=== PATIENT | male | born 1965 | race Caucasian/White ===

== ENCOUNTER 2019-07-09 07:18 | Day surgery (SDC) | payer OTHER ==
[2019-07-08 11:58] VITALS: BMI 32.1
[~2019-07-09 07:18] MED LIST: ACETAMINOPHEN 325 MG TABLET (FP) PO PRN; CHONDROITIN SU A/HYALUR SOD 1 KIT IO ONE; EPINEPHrine/PF 1 MG/1 ML (1:1,000) AMPULE SQ ONE; LIDOCAINE HCL 1% PRESERVATIVE FREE - 30ML VIAL IO ONE; TETRACAINE 0.5% OPHTH SOLN 2 ML BOTTLE TP ONE
[2019-07-09] MEDS ORDERED: PHENYLEPHRINE 2.5% OPHTH SOLN 15 ML BOTTLE ONE (07:38)
[2019-07-09] MEDS ORDERED: KETOROLAC TROMETHAMINE 0.5% EYE DROP 1 DROP DROPS ONE (07:38)
[2019-07-09] MEDS ORDERED: TROPICAMIDE 1% OPHTH SOLN 15 ML BOTTLE ONE (07:38)
[2019-07-09] MEDS ORDERED: CYCLOPENTOLATE HCL 1% OPHTH SOLN 2 ML BOTTLE ONE (07:38)
[2019-07-09] MEDS ORDERED: OFLOXACIN 0.3% OPHTHALMIC SOLUTION 5 ML BOTTLE ONE (07:38)
[2019-07-09] MEDS: KETOROLAC TROMETHAMINE 0.5% EYE DROP 1 DROP DROPS OP SCH ×3 (08:30→08:40)
[2019-07-09] MEDS: OFLOXACIN 0.3% OPHTHALMIC SOLUTION 5 ML BOTTLE OP SCH ×3 (08:30→08:40)
[2019-07-09] MEDS: PHENYLEPHRINE 2.5% OPHTH SOLN 15 ML BOTTLE OP SCH ×3 (08:30→08:40)
[2019-07-09] MEDS: CYCLOPENTOLATE HCL 1% OPHTH SOLN 2 ML BOTTLE OP SCH ×3 (08:30→08:40)
[2019-07-09] MEDS: TROPICAMIDE 1% OPHTH SOLN 15 ML BOTTLE OP SCH ×3 (08:30→08:40)
[2019-07-09] MEDS ORDERED: MIDAZOLAM HCL 2 MG/2 ML SINGLE DOSE VIAL ONE (08:38)
[2019-07-09] MEDS ORDERED: PROPOFOL 20 ML ONE (08:38)
[2019-07-09] MEDS ORDERED: BUPIVACAINE HCL/PF 0.75% 10 ML VIAL ONE (08:58)
[2019-07-09] MEDS ORDERED: LIDOCAINE HCL 2% 100 MG/5 ML DISP.SYRIN ONE (08:58)
[2019-07-09] MEDS ORDERED: TETRACAINE 0.5% OPHTH SOLN 2 ML BOTTLE TP ONE (09:10)
[2019-07-09] MEDS ORDERED: LIDOCAINE HCL 1% PRESERVATIVE FREE - 30ML VIAL IO ONE (09:23)
[2019-07-09] MEDS ORDERED: CHONDROITIN SU A/HYALUR SOD 1 KIT IO ONE (09:23)
[2019-07-09] MEDS ORDERED: EPINEPHrine/PF 1 MG/1 ML (1:1,000) AMPULE SQ ONE (09:29)
[2019-07-09 10:18] VITALS: TEMP 97
[2019-07-09 11:00] VITALS: BP 110/62; PULSE 76
[2019-07-09] MEDS ORDERED: CHONDROITIN SU A/HYALUR SOD 1 KIT ONE (11:18)
[2019-07-09] MEDS ORDERED: TETRACAINE 0.5% OPHTH SOLN 2 ML BOTTLE ONE (11:21)
[2019-07-09] MEDS ORDERED: EPINEPHrine/PF 1 MG/1 ML (1:1,000) AMPULE ONE (11:21)
--- NOTE | 2019-07-09 17:53 | OP ---
DATE OF OPERATION: DATE OF DICTATION: 07/09/2019 OPERATION: Phacoemulsification with posterior chamber intraocular lens implantation, left eye. Lens used [id number], 20.0 Diopter power, Serial No. [id number]. PREOPERATIVE DIAGNOSIS: Cataract, left eye. POSTOPERATIVE DIAGNOSIS: Cataract, left eye. SURGEON: Jamie Mon M.D. ANESTHESIA: Topical MAC. COMPLICATIONS: None. PROCEDURE: The patient was brought to the operating room and correctly identified along with the operative site and the correct intraocular lens seay. The patient was then prepped and draped in the usual sterile fashion including 5% Betadine solution in the conjunctival sac and an eyelid drape. An eyelid speculum was then placed in the eye. A paracentesis port was created and approximately 0.5 mL of preservative free Lidocaine was then injected into the eye. Viscoelastic was then injected to inflate the anterior chamber. A temporal clear corneal wound was created. A continuous circular capsulorrhexis was performed. The nucleus was then hydrodissected with BSS and removed with phacoemulsification. The remaining cortical material was irrigated and aspirated. Viscoelastic was injected to inflate the capsular bag and the intraocular lens was then implanted into the capsular bag. The remaining Viscoelastic was irrigated and aspirated from the eye. The IOL was noted to be well centered and completely covered by the anterior capsulorrhexis. Topical vancomycin was placed and the eye patched and shielded. All wounds were tested and found to be watertight. No suture was placed. The eye was then shielded. The patient was then discharged from the operating room in stable condition. JAMIE MON M.D. [id number]
== END 2019-07-09 10:45 | disposition home or self-care (01) ==
LOC: JASU-SURG 07:18
PROVIDERS: ATTEND Ophthalmology
PROC: 08RK3JZ Replacement of Left Lens with Synthetic Substitute, Percutaneous Approach (ICD-10-PCS; principal; 2019-07-09 09:00)
DX: H26.9 Unspecified cataract (principal)
CPT/HCPCS: 82962

== ENCOUNTER 2019-07-28 12:55 | Emergency (ER) | payer OTHER ==
[2019-07-28 12:58] VITALS: TEMP 98; BMI 32.1
[2019-07-28] MEDS ORDERED: SODIUM CHLORIDE 1,000 ML IV STA (12:59)
--- NOTE | 2019-07-28 12:59 | PDOC ---
Rapid Medical Evaluation Time Seen by Provider: 07/28/19 12:57 Medical Evaluation: Allergies Allergy/AdvReac Type Severity Reaction Status Date / Time No Known Allergies Allergy Verified 07/09/19 08:33 07/28/19 12:57 CC: sent by PMD for elevated LFT's PE: abd SNTND Orders: labs, urine Patient will proceed to ED for further evaluation. Discharge Disposition - Diagnosis Abdominal pain - Referrals - Patient Instructions - Post Discharge Activity
[2019-07-28 14:38] LABS: BASO % 0.3 % (0-2.0); EOS % 1.1 % (0-4.5); HEMATOCRIT 38.7 % (35.4-49); HEMOGLOBIN 13.2 GM/dL (11.7-16.9); LYMPH % 21.3 % (8-40); MCH 32.1 pg (25.7-33.7); MEAN CELL VOLUME 94.4 fl (80-96); MEAN PLT VOLUME 7.5 fl (7.5-11.1); MONO % 8.9 % (3.8-10.2); NEUT % 68.4 % (42.8-82.8); PLATELET COUNT 192 K/MM3 (134-434); RDW 13.7 % (11.9-15.9); WHITE BLOOD COUNT 5.3 K/mm3 (4.0-10.0)
[2019-07-28 15:15] LABS: ALBUMIN 4.1 g/dl (3.4-5.0); ALK PHOS 100 U/L (45-117); ANION GAP 8 MMOL/L (8-16); BILIRUBIN,TOTAL 0.6 mg/dL (0.2-1); CALCIUM 9.1 mg/dL (8.5-10.1); CHLORIDE 101 mmol/L (98-107); CO2 27 mmol/L (21-32); CREATININE 0.9 mg/dL (0.55-1.3); GLUCOSE,RANDOM 134 mg/dL (74-106); LIPASE 176 U/L (73-393); POTASSIUM 3.8 mmol/L (3.5-5.1); SGOT/AST 38 U/L (15-37); SGPT/ALT 134 U/L (13-61); SODIUM 136 mmol/L (136-145); TOT PROT 7.6 g/dl (6.4-8.2)
[2019-07-28 15:42] LABS: EPI CELLS 0.6 /HPF (0-5/HPF); HYALINE CASTS 0 /lpf (0-8); URINE APPEARANCE CLEAR; URINE BACTERIA 1.9 /hpf (NEGATIVE); URINE BILIRUBIN NEGATIVE (NEGATIVE); URINE COLOR YELLOW; URINE GLUCOSE (UA) NEGATIVE (NEGATIVE); URINE KETONE NEGATIVE (NEGATIVE); URINE LEUK ESTERASE 1+ (NEGATIVE); URINE NITRITE NEGATIVE (NEGATIVE); URINE PROTEIN NEGATIVE (NEGATIVE); URINE RBC 0 /hpf (0-4); URINE UROBILINOGEN 0.2 mg/dL (0.2-1.0); URINE WBC 4 /hpf (0-5)
--- NOTE | 2019-07-28 17:01 | PDOC ---
History of Present Illness - General Chief Complaint: Pain Stated Complaint: ABD. PAIN Time Seen by Provider: 07/28/19 12:57 History Source: Patient Exam Limitations: No Limitations - History of Present Illness Travel History: No Initial Comments: 07/28/19 16:56 53-year-old male presents to ED with complaints of intermittent diarrhea for the past 2 weeks. Last episode being 5 days ago. Patient states went to his PMD last week had blood work done which showed an elevated total bili and elevated LFTs here. Patient was told today to go to the nearest ER since there is an upcoming holiday and labs were not going to be resulted or retrieved prior to the holiday. Patient currently asymptomatic with minimal complaints of the epigastric region describing as a cramp-like burning patient denies fever , chills., Chest pain, bloody stools, constipation, abdominal distention or urinary complaints. Timing/Duration: reports: changing over time Quality: reports: mild, burning, cramping Abdominal Pain Onset Location: reports: epigastric Pain Radiation: reports: no radiation Activities at Onset: reports: none Aggravating Factors: improves with: None Alleviating Factors: improves with: None Past History - Travel Traveled outside of the country in the last 30 days: No Close contact w/someone who was outside of country & ill: No - Past Medical History Allergies/Adverse Reactions: Allergies Allergy/AdvReac Type Severity Reaction Status Date / Time No Known Allergies Allergy Verified 07/28/19 12:59 Home Medications: Ambulatory Orders Atorvastatin Ca [Lipitor] 20 mg PO HS 07/08/19 Esomeprazole Magnesium [Nexium 24Hr] 40 mg PO DAILY 07/08/19 Sitagliptin Phos/Metformin HCl [Janumet 50-500 mg Tablet] 1 each PO BID Valsartan/Hydrochlorothiazide [Valsartan-Hctz 160-12.5 mg Tab] 1 each PO DAILY 07/08/19 Anemia: No Asthma: No Cancer: No Cardiac Disorders: No CVA: No COPD: No CHF: No Dementia: No Diabetes: Yes GI Disorders: No Disorders: No HTN: Yes Hypercholesterolemia: No Liver Disease: No Seizures: No Thyroid Disease: No - Psycho Social/Smoking Cessation Hx Smoking History: Never smoked Hx Alcohol Use: No Drug/Substance Use Hx: No Substance Use Type: None Hx Substance Use Treatment: No Patient Lives Alone: No Lives with/in: spouse/SO Review of Systems - Review of Systems Able to Perform ROS?: No Is the patient limited Kinyarwanda proficient: No Constitutional: No: Symptoms Reported HEENTM: No: Symptoms Reported Respiratory: No: Symptoms reported Cardiac (ROS): No: Symptoms Reported ABD/GI: Yes: Diarrhea. No: Nausea, Poor Appetite, Poor Fluid Intake, Abdominal cramping : No: Symptoms Reported Musculoskeletal: No: Symptoms Reported Integumentary: No: Symptoms Reported Neurological: No: Symptoms reported Hematologic/Lymphatic: No: Symptoms Reported *Physical Exam - Vital Signs Last Vital Signs Temp Pulse Resp BP Pulse Ox 98 F 98 H 18 158/80 99 07/28/19 12:56 07/28/19 12:56 07/28/19 12:56 07/28/19 12:56 07/28/19 12:56 - Physical Exam General Appearance: Yes: Nourished, Appropriately Dressed. No: Apparent Distress HEENT: negative: Pale Conjunctivae Neck: positive: Supple Respiratory/Chest: positive: Lungs Clear, Normal Breath Sounds. negative: Respiratory Distress, Accessory Muscle Use Cardiovascular: positive: Regular Rhythm, Regular Rate. negative: Murmur Gastrointestinal/Abdominal: positive: Soft. negative: Tenderness Musculoskeletal: negative: CVA Tenderness Extremity: positive: Normal Inspection Integumentary: positive: Normal Color, Warm, Moist Neurologic: positive: Normal Mood/Affect, Motor Strength 5/5 (ambulatory) ED Treatment Course - LABORATORY CBC & Chemistry Diagram: 07/28/19 14:15 07/28/19 14:15 - ADDITIONAL ORDERS Additional order review: Laboratory Results 07/28/19 07/28/19 15:10 14:15 Sodium 136 Potassium 3.8 Chloride 101 Carbon Dioxide 27 Anion Gap 8 BUN 13.0 Creatinine 0.9 Est GFR (CKD-EPI)AfAm 113.41 Est GFR (CKD-EPI)NonAf 97.85 Random Glucose 134 H Calcium 9.1 Total Bilirubin 0.6 AST 38 H ALT 134 H Alkaline Phosphatase 100 Creatine Kinase 124 Troponin I < 0.02 Total Protein 7.6 Albumin 4.1 Lipase 176 Urine Color Yellow Urine Appearance Clear Urine pH 7.0 Ur Specific [place] 1.007 L Urine Protein Negative Urine Glucose (UA) Negative Urine Ketones Negative Urine Blood Negative Urine Nitrite Negative Urine Bilirubin Negative Urine Urobilinogen 0.2 Ur Leukocyte Esterase 1+ H Urine WBC (Auto) 4 Urine RBC (Auto) 0 Urine Casts (Auto) 0 U Epithel Cells (Auto) 0.6 Urine Bacteria (Auto) 1.9 07/28/19 14:15 RBC 4.10 MCV 94.4 MCHC 34.0 RDW 13.7 MPV 7.5 Neutrophils % 68.4 Lymphocytes % 21.3 Monocytes % 8.9 Eosinophils % 1.1 Basophils % 0.3 - RADIOLOGY Radiology Studies Ordered: Category Date Time Status ABDOMEN US -LIMITED [US] Stat Ultrasound 07/28/19 14:06 Ordered - Medications Given in the ED: ED Medications Discontinued Medications Generic Name Dose Route Start Last Admin Trade Name Freq PRN Reason Stop Dose Admin Sodium Chloride 1,000 mls @ 1,000 mls/hr 07/28/19 12:59 07/28/19 16:08 Normal Saline - IV 07/28/19 13:58 Not Given ASDIR STA Medical Decision Making - Medical Decision Making 07/28/19 15:28 CC: Here for evaluation of intermittent diarrhea for the past 2 weeks last episode being 5 days ago. Patient was sent by his primary care doctor secondary to elevated dated LFTs and total bili. Exam: Patient with no abdominal tenderness on exam vital signs stable. Patient appears comfortable Plan: Labs, urine abdominal ultrasound limited. Case discussed with Dr. Watts who agrees with the same. 07/28/19 17:35 Laboratory Tests 07/28/19 07/28/19 07/28/19 14:15 14:15 15:10 WBC 5.3 Hgb 13.2 Hct 38.7 Absolute Neuts (auto) 3.6 Sodium 136 Potassium 3.8 Chloride 101 Carbon Dioxide 27 Anion Gap 8 BUN 13.0 Creatinine 0.9 Est GFR (CKD-EPI)AfAm 113.41 Est GFR (CKD-EPI)NonAf 97.85 Random Glucose 134 H Calcium 9.1 Total Bilirubin 0.6 AST 38 H ALT 134 H Alkaline Phosphatase 100 Creatine Kinase 124 Troponin I < 0.02 Total Protein 7.6 Albumin 4.1 Lipase 176 Ur Specific [place] 1.007 L Ur Leukocyte Esterase 1+ H Urine WBC (Auto) 4 U Epithel Cells (Auto) 0.6 Urine Bacteria (Auto) 1.9 07/28/19 17:38 Ultrasound shows a complex 1.7 right renal cortical cyst with recommendation of outpatient MRI. Multiple gallbladder calculi noted as well as diffuse gallbladder wall thickening. No pericholecystic fluid visualized. Also common bile duct measuring 0.7 cm with no intra-ductal calculi noted. Case discussed with Dr. Watts who recommends patient follow-up in the office this week given strict diet instructions as long along with checking his temperature. Case also discussed with patient's PCP Dr. Mesa and agrees with the same patient given referral to surgery and GI. Discharge - Discharge Information Problems reviewed: Yes Clinical Impression/Diagnosis: Abdominal pain, Gallstones Condition: Good Disposition: HOME - Follow up/Referral Referrals: Joey James MD [Staff Physician] - Pacheco Humphries MD [Staff Physician] - - Patient Discharge Instructions Patient Printed Discharge Instructions: Gallstones (Alternative Therapy), DI for Gallstones Additional Instructions: .Please avoid spicy greasy food follow-up in your doctor's office tomorrow for repeat vitals and quick reexam. If you develop nausea, vomiting, fever, chills or inability to tolerate anything by mouth please return to the ED immediately. Otherwise follow-up also with referred physicians as discussed with your primary care physician. - Post Discharge Activity
[2019-07-28 18:41] VITALS: BP 140/75; PULSE 88
== END 2019-07-28 17:56 | disposition home or self-care (01) ==
LOC: JER 12:55
PROC: 3E0337Z Introduction of Electrolytic and Water Balance Substance into Peripheral Vein, Percutaneous Approach (ICD-10-PCS; principal; 2019-07-28)
DX: K80.20 Calculus of gallbladder without cholecystitis without obstruction (principal); I10 Essential (primary) hypertension
CPT/HCPCS: 36415; 76705-TC; 80053; 81003; 82550; 83690; 84484; 85025; 99284-25

== ENCOUNTER 2021-08-02 11:09 | Emergency (ER) | payer OTHER ==
[2021-08-02 11:26] VITALS: BP 136/87; PULSE 95; TEMP 98.2; BMI 33.7
[2021-08-02] MEDS ORDERED: CASIRIVIMAB/IMDEVIMAB 10 ML in SODIUM CHLORIDE 100 ML IVPB ONE (12:20)
== END 2021-08-02 15:39 | disposition home or self-care (01) ==
LOC: JCOVINFU 11:09
DX: U07.1 COVID-19 (principal)
CPT/HCPCS: 99284-25; Q0240